=== PATIENT | male | born 1975 | race Caucasian/White ===

== ENCOUNTER 2017-03-18 05:00 | Inpatient (IN) | payer OTHER ==
[~2017-03-18] VITALS: Ht 190.5 cm; Wt 99.8 kg
--- NOTE | ~2017-03-18 | PA ---
Unit #: [id number] #: [id number] Patient: SHREYAS POOLE [id number] [facility] [address] [place] [address] [id number] MR#: [id number] NAME: SHREYAS POOLE ROOM: [facility] Age: 41 Sex: M Admission Date: 03/18/2017 : 1975 Date of Assessment: 03/19/2017 Attending Physician: Shreyas Stafford M.D. Admitting Physician: Shreyas Stafford M.D. Primary Care Physician: Primary Care Physician No PSYCHIATRIC ASSESSMENT DATE OF SERVICE 03/19/2017. INFORMANTS The patient, partially reliable; OLOP, reliable. CHIEF COMPLAINT Opiates. HISTORY OF PRESENT ILLNESS Shreyas is a 41-year-old man, who presented reporting difficulty with heroin abuse and needing assistance with detox. He was vague about intent to harm himself and he was unable to contract for safety in the outpatient setting. He was admitted for stabilization. PAST PSYCHIATRIC HISTORY Please see previous assessments. SOCIAL HISTORY The patient is erratically employed and has unstable psychosocial support. He is single and his family history is otherwise unknown. PAST MEDICAL HISTORY No chronic medical problems. MEDICATIONS None currently. ALLERGIES Please see MAR. SUBSTANCE ABUSE HISTORY As noted, the patient has been using heroin to excess. MENTAL STATUS EXAMINATION The patient presented as a mildly ill man, who appeared his stated age. He was quiet and difficult to awake for the examination. His speech was soft, but easily understood. Musculoskeletal examination was calm. His mood was irritable with a congruent affect. He was alert and fully oriented. His memory and concentration were fair. Thought processes were logical. There was no active psychosis and no active suicidal ideation, intent, or plan. Insight and judgment, fair. Fund of knowledge and abstraction, fair. Unit #: [id number] #: [id number] Patient: SHREYAS POOLE ASSETS AND LIABILITIES The patient reports knowledge of local resources and presents voluntarily for treatment. Liabilities include difficulty maintaining sobriety. ADMITTING DIAGNOSES AXIS I: Opioid dependence withdrawal, uncomplicated. AXIS II: No diagnosis. AXIS III: Opioid withdrawal syndrome. AXIS IV: AXIS V: BODY AFTER ALLERGIES PSYCHIATRIC PLAN The patient was admitted and placed on the opioid detox protocol. No antidepressant medication was considered or initiated. He will enroll in psychotherapy groups and activities, and physical examination and laboratory studies will be ordered and reviewed. TREATMENT GOALS Establishment of sobriety, improvement in insight, and improvement in coping skills. DISCHARGE PLANNING Follow up with [facility]. ESTIMATED LENGTH OF STAY 5 days. Dictated by... Shreyas Stafford M.D. JESSE/jada TD: 03/20/2017 17:58 JOB #: [id number] PSYCHIATRIC ASSESSMENT Page 1 of 1 X Shreyas Stafford MD X PSYCHIATRIC ASSESSMENT
--- NOTE | ~2017-03-18 | HP ---
Unit #: [id number] #: [id number] Patient: MOHAMUD POOLE [id number] [facility] [address] [place] [address] [id number] MR#: [id number] NAME: MOHAMUD POOLE ROOM: P211 Age: 41 Sex: M Admission Date: 03/18/2017 : 1975 Attending Physician: Mohamud Stafford M.D. Admitting Physician: Mohamud Stafford M.D. Primary Care Physician: Primary Care Physician No HISTORY AND PHYSICAL HISTORY OF PRESENT ILLNESS Mohamud is a 41-year-old male admitted on 03/18/[address] [place] [address] for detox from heroin, Xanax, meth and ice. PAST MEDICAL HISTORY None. PAST SURGICAL HISTORY None. SOCIAL HISTORY He smoke 1/2 pack of cigarettes daily, denies alcohol use. Does report daily use of heroin, Xanax, marijuana, and frequent ice and meth use. He is currently single and living with his girlfriend. FAMILY HISTORY Noncontributory. REVIEW OF SYSTEMS CONSTITUTIONAL: No fever or chills. HEENT: Denies any sore throat, ear pain or runny nose. CARDIOVASCULAR: Denies chest pain, irregular heart rhythm or palpitations. CHEST: Denies shortness of breath or cough. No hemoptysis. GASTROINTESTINAL: Denies nausea, vomiting, diarrhea or chronic constipation. ENDOCRINE: Denies history of increased thirst or urination. No recent significant weight loss or gain. GENITOURINARY: Denies dysuria, frequency, or hematuria. SKIN: Denies any rashes. HEMATOLOGIC: Denies history of increased bleeding or bruising. MUSCULOSKELETAL: Denies any hot, swollen joints. No generalized muscle pain. NEUROLOGIC: Denies problems with vision or speech. No frequent, severe headaches. No numbness, tingling or weakness in any extremities. Denies loss of bladder or bowel control. CURRENT MEDICATIONS None. ALLERGIES None. Unit #: [id number] #: [id number] Patient: MOHAMUD POOLE PHYSICAL EXAMINATION GENERAL: Alert, oriented, in no acute distress. VITAL SIGNS: Blood pressure 147/87, heart rate 80, respirations 16, temperature 97.8. HEIGHT: 6 foot 3 inches. WEIGHT: 220 pounds. SKIN: Warm and dry without rash or lesion. HEENT: Normocephalic. TMs not viewed. Oral and nasal passages clear. Conjunctivae clear. PERRLA. EOMs intact. NECK: Supple without lymphadenopathy or thyromegaly. HEART: Regular rate and rhythm without murmur. LUNGS: Clear. ABDOMEN: Soft, nontender, without masses or hepatosplenomegaly. : Not done. EXTREMITIES: No evidence of cyanosis, clubbing or edema. Moves all without focal deficit. NEUROLOGICAL: Grossly within normal limits. Cranial Nerves: II: Visual preciado are intact. III, IV AND : Extraocular movements are intact. Pupils are equal, round and reactive to light. V: Facial sensation is grossly normal. VII: Facial movements and expression are normal. VIII: Auditory acuity grossly intact. IX, X: Uvula is midline. Phonation is normal. XI: Patient shrugs shoulders and turns head normally. XII: Tongue protrudes in the midline. Sensory and Motor Function: Sensory and motor sensation is grossly normal. Motor: moves all extremities well. Coordination: Gait is normal. Deep Tendon Reflexes: Intact. IMPRESSION Psychiatric admission. RECOMMENDATIONS Psychiatric, per psychiatrist. MEDICAL: I see no contraindications to participating in facility's activities. MEDICAL PROGNOSIS Good. MEDICAL CONDITION Stable. Dictated by... Arnaldo Temple/veronica TD: 03/19/2017 01:36 JOB #: [id number] Unit #: [id number] #: [id number] Patient: MOHAMUD POOLE HISTORY AND PHYSICAL Page 1 of 1 X LEÓN ROSE APRN X HISTORY AND PHYSICAL
--- NOTE | ~2017-03-18 | DS ---
Unit #: [id number] #: [id number] Patient: SHREYAS POOLE [id number] [facility] [address] [place] [address] [id number] MR#: [id number] NAME: SHREYAS POOLE ROOM: [facility] Age: 41 Sex: M Admission Date: 03/18/2017 : 1975 Discharge Date: 03/20/2017 Attending Physician: Shreyas Stafford M.D. Primary Care Physician: Primary Care Physician No DISCHARGE SUMMARY REASON FOR ADMISSION Shreyas is a 41-year-old man who presented requesting assistance with opiate detox. He had no SI, or plan and was admitted for stabilization. DIAGNOSTIC STUDIES LABORATORY RESULTS: Please see hospital chart. HOSPITAL COURSE The patient was admitted and placed on the opiate detox protocol. He was difficult to arouse at the first day for an interview, and on the following day, he was quite irritable, complaining that he was "not getting any help" because the medications were effective for his detox symptoms. He also requested a Vivitrol injection and when he was told this would not be available during the hospitalization due to his most recent drug use, but could be done after a few days, he stated "if I can get the shot, will go." He had no suicidal ideation, intent, or plan and was discharged at his request. DISCHARGE DIAGNOSES AXIS I: Opiate dependence with withdrawal, uncomplicated. AXIS II: No diagnosis. AXIS III: Opiate withdrawal. AXIS IV: AXIS V: DISCHARGE INSTRUCTIONS Follow up with CD program of the patient's choice. DISCHARGE MEDICATIONS None. CONDITION AT DISCHARGE Fair. PROGNOSIS Fair. DIET AND ACTIVITY Ad travis. Dictated by... Unit #: [id number] #: [id number] Patient: SHREYAS POOLE Shreyas Stafford M.D. [facility]/modl TD: 03/20/2017 19:31 JOB #: [id number] DISCHARGE SUMMARY Page 1 of 1 X Shreyas Stafford MD X DISCHARGE SUMMARY
[2017-03-19 10:46] LABS: BASOPHIL% 0.4 % (0-2.5); EOSINOPHIL# 0.1 X10e3 (0-0.7); EOSINOPHIL% 0.7 % (0.0-7.0); HEMATOCRIT 42.7 % (38.0-50.0); HEMOGLOBIN 14.6 gm/dL (13.0-16.0); LYMPHOCYTE# 1.8 X10e3 (1.0-3.5); LYMPHOCYTE% 20.5 % (17.0-45.0); MEAN CELL VOLUME 86.9 FL (83-96); MEAN CORPUSCULAR HEMOGLOBIN 29.7 PG (28-34); MEAN CORPUSCULAR HGB CONC 34.2 g/dL (30-36); MEAN PLATELET VOLUME 9.2 FL (6.5-11.5); MONOCYTE# 0.6 X10e3 (0-1.0); NEUTROPHIL# 6.3 X10e3 (1.5-7.1); NEUTROPHIL% 71.4 % (40-75); PLATELET COUNT 228 X10e3 (140-420); RED BLOOD COUNT 4.92 X10e (3.90-5.60); RED CELL DISTRIBUTION WIDTH 15.4 % (11.0-15.5); WHITE BLOOD COUNT 8.8 X10e3 (4.0-10.5)
[2017-03-19 11:04] LABS: DIFF IND NO
[2017-03-19 11:18] LABS: ALBUMIN SERUM 4.1 g/dL (3.5-5.0); BILIRUBIN,TOTAL 0.6 mg/dL (0.2-2.0); BUN/CREATININE RATIO 13.75; CREATININE SERUM 0.8 mg/dL (0.6-1.4); GLOM FILT RATE Estimated 112.6 mL/min (>60); POTASSIUM 4.1 mmol/L (3.5-5.1)
[2017-03-19 11:20] LABS: AMPHETAMINE POS (NEG); BARBITURATES NEG (NEG); BENZODIAZEPINES NEG (NEG); COCAINE NEG (NEG); MARIJUANA POS (NEG); OPIATES POS (NEG); TRICYCLIC ANTIDEPRESSANTS NEG (NEG); U METHADONE NEG (NEG)
== END 2017-03-20 13:00 | disposition home or self-care (01) | DRG 897 ==
LOC: P2S 08:43 → POF 10:13 → P2S 10:14
PROVIDERS: Psychiatry & Neurology Psychiatry
PROC: HZ2ZZZZ Detoxification Services for Substance Abuse Treatment (ICD-10-PCS; principal; 2017-03-19)
DX: F11.23 Opioid dependence with withdrawal (principal)
CPT/HCPCS: 80053; 80307; 85025; 86592